=== PATIENT | female | born 1985 | race Caucasian/White ===

== ENCOUNTER 2016-12-16 20:00 | Emergency (ER) | payer MEDICAID, OTHER ==
[2016-12-17] MEDS ORDERED: IBUPROFEN 600 MG TABLET ONE (00:48)
[2016-12-17] MEDS ORDERED: ACETAMINOPHEN 325 MG TABLET ONE (00:48)
--- NOTE | 2016-12-17 09:18 | RAD ---
HISTORY: Popping sound when patient was getting up from the ground. Swelling and bruising along superior lateral aspect. Initial encounter. COMPARISON: None. TECHNIQUE: four views of Right knee. FINDINGS: Bones: No fracture or dislocation. Joints: Normal. Soft tissue: No joint effusion. IMPRESSION: No fracture or dislocation.
== END 2016-12-17 01:35 | disposition home or self-care (01) ==
LOC: ED 20:00
DX: M25.561 Pain in right knee (principal); J45.909 Unspecified asthma, uncomplicated; F17.210 Nicotine dependence, cigarettes, uncomplicated; X50.0XXA Overexertion from strenuous movement or load, initial encounter; Y92.9 Unspecified place or not applicable; Y99.0 Civilian activity done for income or pay
CPT/HCPCS: 73564; 99283 ×2; A9270 ×2